=== PATIENT | female | born 1990 | race Caucasian/White ===

== ENCOUNTER 2016-12-28 13:49 | Inpatient (IN) | payer BC, OTHER ==
[~2016-12-28] VITALS: Ht 162.6 cm; Wt 118.2 kg
[2016-12-28] MEDS ORDERED: PREN-3 PO (14:18)
[2016-12-28 14:41] LABS: HEMATOCRIT 37.8 % (34.6-47.8); HEMOGLOBIN 12.7 g/dL (11.7-16.4); WHITE BLOOD COUNT 12.1 x10^3/uL (3.4-10)
[2016-12-28 15:02] LABS: ASPARTATE AMINO TRANSFERASE 13 U/L (15-37); BLOOD UREA NITROGEN 9 mg/dL (7-18)
[2016-12-28] MEDS ORDERED: LABETALOL 100 MG TABLET ONE (21:06)
[2016-12-28] MEDS ORDERED: LABETALOL 100 MG TABLET PO ONE (21:30)
[2016-12-28] MEDS ORDERED: LABETALOL 100 MG TABLET PO SCH (21:30)
[2016-12-29] MEDS: LACTATED RINGERS 1,000 ML IV SCH ×4 (04:30→19:43)
[2016-12-29] MEDS ORDERED: BETAMETHASONE 6 MG/ML, 5ML IM ONE ×2 (09:51→10:00)
[2016-12-29] MEDS ORDERED: OXYTOCIN 30U/ 0.9% NaCL 500ML 500 ML IV SCH (15:53)
[2016-12-29] MEDS ORDERED: LACTATED RINGERS 1,000 ML IVBOLUS ONE (16:00)
[2016-12-29] MEDS ORDERED: SODIUM CITRATE/CITRIC ACID 30 ML UDC PO ONE (16:00)
[2016-12-29] MEDS ORDERED: METOCLOPRAMIDE 5 MG/ML, 2ML IV ONE (16:00)
[2016-12-29] MEDS ORDERED: ONDANSETRON 2MG/ML, 2ML IVPush ONE (16:00)
[2016-12-29] MEDS ORDERED: NEWBORN KIT ONE (16:04)
[2016-12-29] MEDS ORDERED: SODIUM CITRATE/CITRIC ACID 30 ML UDC ONE (16:23)
[2016-12-29] MEDS ORDERED: METOCLOPRAMIDE 5 MG/ML, 2ML ONE (16:23)
[2016-12-29] MEDS ORDERED: INFLUENZA VACCINE IM-VACC ONE (16:30)
[2016-12-29] MEDS ORDERED: CEFAZOLIN 1,000 MG ONE ×4 (16:38→16:39)
[2016-12-29] MEDS ORDERED: MAGNESIUM SULF. PMX 20GM/500ML 500 ML IV SCH (16:40)
[2016-12-29] MEDS ORDERED: OXYTOCIN 10 UNITS/ML, 1ML ONE ×3 (16:41)
[2016-12-29] MEDS ORDERED: MAGNESIUM SULF. PMX 20GM/500ML 500 ML IV ONE (16:46)
[2016-12-29] MEDS ORDERED: OXYcodone 5 MG/5 ML ORAL.SOL UDC PO ONE (18:47)
[2016-12-29] MEDS ORDERED: KETOROLAC 30 MG/1 ML ONE (18:51)
[2016-12-29] MEDS ORDERED: OXYTOCIN 30U/ 0.9% NaCL 500ML 500 ML ONE (19:31)
[2016-12-29] MEDS: OXYTOCIN 30U/ 0.9% NaCL 500ML 500 ML IV SCH (19:38)
[2016-12-29] MEDS ORDERED: METOCLOPRAMIDE 5 MG/ML, 2ML IV PRN (20:00)
[2016-12-29] MEDS ORDERED: MISOPROSTOL 200 MCG TABLET PR PRN (20:00)
[2016-12-29] MEDS ORDERED: ONDANSETRON 2MG/ML, 2ML IV PRN (20:00)
[2016-12-29] MEDS ORDERED: GLYCERIN ADULT SUPP PR PRN (20:00)
[2016-12-29] MEDS ORDERED: ACETAMINOPHEN 325 MG TABLET PO PRN (20:00)
[2016-12-29] MEDS ORDERED: BISACODYL 10 MG SUPP PR PRN (20:00)
[2016-12-29] MEDS ORDERED: SIMETHICONE 80 MG CHEW TAB PO PRN (20:00)
[2016-12-29] MEDS ORDERED: FENTANYL PF 100 MCG/2ML ONE ×2 (20:07→21:42)
[2016-12-29] MEDS: FENTANYL PF 100 MCG/2ML IVPush PRN ×4 (20:20→22:01)
[2016-12-29] MEDS ORDERED: OXYcodone 5 MG/5 ML ORAL.SOL UDC ONE (20:47)
[2016-12-29 21:50] VITALS: BP 134/79
[2016-12-30] VITALS: BP 130/74
[2016-12-30] MEDS: KETOROLAC 30 MG/1 ML IV SCH ×4 (01:09→19:57)
[2016-12-30] MEDS: OXYcodone/APAP 5/325MG TABLET PO PRN ×3 (03:15→18:23)
[2016-12-30] MEDS: LACTATED RINGERS 1,000 ML IV SCH ×3 (03:38→15:38)
[2016-12-30 04:33] VITALS: BP 126/74
[2016-12-30 04:57] LABS: HEMATOCRIT 34.5 % (34.6-47.8); HEMOGLOBIN 11.7 g/dL (11.7-16.4); WHITE BLOOD COUNT 16.1 x10^3/uL (3.4-10)
[2016-12-30] MEDS: OXYTOCIN 30U/ 0.9% NaCL 500ML 500 ML IV SCH ×2 (05:38→15:38)
[2016-12-30 07:10] VITALS: BP 116/74
[2016-12-30] MEDS: DOCUSATE 100 MG CAPSULE PO PRN ×2 (08:17→19:57)
[2016-12-30] MEDS: PRENATAL VIT/IRON/FA 1 EACH TABLET PO SCH (08:17)
[2016-12-30 12:36] VITALS: BP 128/87
[2016-12-30] MEDS ORDERED: RHOGAM FROM BLOOD BANK 1 NOTE EA IM/IV ONE (15:00)
[2016-12-30 15:55] VITALS: BP 118/76
[2016-12-30 19:30] VITALS: BP 134/83
[2016-12-31] MEDS: LACTATED RINGERS 1,000 ML IV SCH ×3 (01:38→21:38)
[2016-12-31] MEDS: OXYTOCIN 30U/ 0.9% NaCL 500ML 500 ML IV SCH ×3 (01:38→21:38)
[2016-12-31] MEDS: KETOROLAC 30 MG/1 ML IV SCH ×4 (02:22→22:00)
[2016-12-31] MEDS: OXYcodone/APAP 5/325MG TABLET PO PRN ×3 (02:23→21:44)
[2016-12-31 07:56] VITALS: BP 117/78
[2016-12-31] MEDS: PRENATAL VIT/IRON/FA 1 EACH TABLET PO SCH (07:58)
[2016-12-31] MEDS: DOCUSATE 100 MG CAPSULE PO PRN ×2 (07:59→21:44)
[2016-12-31] MEDS ORDERED: DIPHENHYDRAMINE 50 MG/ML, 1ML IVPush ONE (14:00)
[2016-12-31] MEDS ORDERED: MAGNESIUM SULF. PMX 20GM/500ML 500 ML IV SCH (16:40)
[2016-12-31 20:00] VITALS: BP 138/80
[2016-12-31] MEDS: IBUPROFEN 800 MG TABLET PO PRN (21:44)
[2017-01-01] MEDS: OXYTOCIN 30U/ 0.9% NaCL 500ML 500 ML IV SCH ×2 (07:38→17:38)
[2017-01-01] MEDS: LACTATED RINGERS 1,000 ML IV SCH ×2 (07:38→17:38)
[2017-01-01 09:00] VITALS: BP 132/88
[2017-01-01] MEDS: PRENATAL VIT/IRON/FA 1 EACH TABLET PO SCH (09:02)
[2017-01-01] MEDS: DOCUSATE 100 MG CAPSULE PO PRN ×2 (09:02→19:40)
[2017-01-01] MEDS: IBUPROFEN 800 MG TABLET PO PRN ×2 (09:49→19:40)
[2017-01-01] MEDS: OXYcodone/APAP 5/325MG TABLET PO PRN ×3 (09:49→19:40)
[2017-01-01] MEDS ORDERED: ONDANSETRON ODT 4 MG PO PRN (19:30)
[2017-01-01 19:49] VITALS: BP 144/97
[2017-01-01] MEDS ORDERED: BISACODYL 10 MG SUPP PR PRN (21:00)
[2017-01-01] MEDS ORDERED: GLYCERIN ADULT SUPP PR PRN (21:00)
[2017-01-01] MEDS ORDERED: MISOPROSTOL 200 MCG TABLET PR PRN (21:00)
[2017-01-01] MEDS ORDERED: ACETAMINOPHEN 325 MG TABLET PO PRN (21:00)
[2017-01-01] MEDS ORDERED: SIMETHICONE 80 MG CHEW TAB PO PRN (21:00)
[2017-01-01 22:50] VITALS: BP 134/81
[2017-01-01 23:19] LABS: ASPARTATE AMINO TRANSFERASE 15 U/L (15-37); BLOOD UREA NITROGEN 13 mg/dL (7-18)
[2017-01-01 23:20] LABS: HEMATOCRIT 35.3 % (34.6-47.8); HEMOGLOBIN 11.8 g/dL (11.7-16.4); WHITE BLOOD COUNT 9.4 x10^3/uL (3.4-10)
[2017-01-02] MEDS ORDERED: BUTALB/APAP/CAFFEINE 50MG/325MG/40MG PO PRN (07:30)
[2017-01-02] MEDS ORDERED: OXYC-302 PO (07:38)
[2017-01-02] MEDS ORDERED: IBUP-1222 PO (07:38)
[2017-01-02] MEDS ORDERED: fioricet (07:45)
[2017-01-02] MEDS ORDERED: BUTA-177 PO (07:47)
[2017-01-02 09:25] VITALS: BP 139/87
[2017-01-02] MEDS: PRENATAL VIT/IRON/FA 1 EACH TABLET PO SCH (09:35)
[2017-01-02] MEDS: DOCUSATE 100 MG CAPSULE PO PRN (09:35)
[2017-01-02] MEDS: IBUPROFEN 800 MG TABLET PO PRN (09:35)
== END 2017-01-02 16:05 | disposition home or self-care (01) | DRG 765 ==
LOC: LDIP 13:49 → OBSVTOIN 12-29 15:33 → 2NW 12-29 22:30
PROVIDERS: ADMIT Student in an Organized Health Care Education/Training Program; ATTEND Student in an Organized Health Care Education/Training Program
PROC: 10D00Z1 Extraction of Products of Conception, Low, Open Approach (ICD-10-PCS; principal; 2016-12-29)
DX: O34.211 Maternal care for low transverse scar from previous cesarean delivery (principal); O45.93 Premature separation of placenta, unspecified, third trimester; E66.01 Morbid (severe) obesity due to excess calories; E10.65 Type 1 diabetes mellitus with hyperglycemia; O36.4XX0 Maternal care for intrauterine death, not applicable or unspecified; Z37.3 Twins, one liveborn and one stillborn; O99.284 Endocrine, nutritional and metabolic diseases complicating childbirth; O26.893 Other specified pregnancy related conditions, third trimester; O14.94 Unspecified pre-eclampsia, complicating childbirth; O31 Complications specific to multiple gestation; O30.043 Twin pregnancy, dichorionic/diamniotic, third trimester; O76 Abnormality in fetal heart rate and rhythm complicating labor and delivery; E03.9 Hypothyroidism, unspecified; O99.214 Obesity complicating childbirth; Z3A.32 32 weeks gestation of pregnancy; Z79.4 Long term (current) use of insulin; Z86.001 Personal history of in-situ neoplasm of cervix uteri; Z87.891 Personal history of nicotine dependence; Z96.41 Presence of insulin pump (external) (internal)
CPT/HCPCS: 36415; 80053; 81001; 81050; 82248; 82570; 82803; 84156; 84550; 85025; 85461; 86850; 86870; 86900; 86922; 86923; 88305; G0378; J0690; J0702; J1885; J2790; J3010; Q0162; J1200; J2590; J2765; J7120

== ENCOUNTER 2020-01-17 09:08 | Observation (INO) | payer SELFPAY ==
[~2020-01-17] VITALS: Ht 162.6 cm; Wt 119.5 kg
[~2020-01-17 09:08] MED LIST: BUTA-177 PO; IBUP-1222 PO; OXYC-302 PO; PREN-3 PO; fioricet
[2020-01-17 09:38] VITALS: BP 170/79
[2020-01-17 09:52] LABS: BASOPHILS % (AUTO) 1 % (0-1); EOSINOPHILS % (AUTO) 1 % (1-7); LYMPHOCYTES % (AUTO) 19 % (22-44); MEAN CORPUSCULAR HEMOGLOBIN 29.6 pg (27.0-34.8); MEAN CORPUSCULAR HGB CONC 33.9 g/dL (32.4-35.8); MEAN PLATELET VOLUME 8.1 fL (7.4-10.4); MONOCYTES % (AUTO) 5 % (2-9); NEUTROPHILS % (AUTO) 75 % (42-75); PLATELET COUNT 238 x10^3/uL (130-400); RED BLOOD COUNT 4.51 x10^6/uL (3.82-5.3); RED CELL DISTRIBUTION WIDTH 13.4 % (9.6-15.2)
[2020-01-17 09:57] LABS: MD NO
[2020-01-17 10:06] LABS: ALANINE AMINOTRANSFERASE 13 U/L (12-78); ALBUMIN 2.6 g/dL (3.4-5.0); ANION GAP 9 mmol/L (5-15); CALCIUM 8.4 mg/dL (8.5-10.1); CHLORIDE 111 mmol/L (98-107); CREATININE 0.64 mg/dL (0.55-1.02)
[2020-01-17 10:08] LABS: ALKALINE PHOSPHATASE 119 U/L (45-117); BILIRUBIN,TOTAL 0.3 mg/dL (0.2-1.0); TOTAL PROTEIN 6.3 g/dL (6.4-8.2)
[2020-01-17 10:09] LABS: BILIRUBIN, DIRECT < 0.1 mg/dL (0.1-0.2)
[2020-01-17 10:29] LABS: MICROSCOPIC NOT IND
[2020-01-17 10:48] LABS: CREATININE,URINE RANDOM 69.5 mg/dL
[2020-01-17] MEDS ORDERED: LEVOTHYROXINE 100 MCG TABLET PO SCH (21:00)
[2020-01-18] MEDS ORDERED: PRENATAL VIT/IRON/FA 1 EACH TABLET PO SCH (09:00)
[2020-01-18] MEDS ORDERED: ASPIRIN 81 MG TABLET CHEW PO SCH (09:00)
[2020-01-18] MEDS ORDERED: DOCUSATE 100 MG CAPSULE ONE (10:03)
[2020-01-18] MEDS ORDERED: PRENATAL VIT/IRON/FA 1 EACH TABLET ONE (10:03)
[2020-01-18] MEDS ORDERED: ASPIRIN 81 MG TABLET EC ONE (10:04)
== END 2020-01-18 13:47 | disposition home or self-care (01) ==
LOC: LDOP 09:08 → ORIP 12:36 → LDIP 13:28
PROVIDERS: ADMIT Obstetrics & Gynecology; ATTEND Obstetrics & Gynecology
DX: O24.013 Pre-existing type 1 diabetes mellitus, in pregnancy, third trimester (principal); O99.283 Endocrine, nutritional and metabolic diseases complicating pregnancy, third trimester; E03.9 Hypothyroidism, unspecified; E55.9 Vitamin D deficiency, unspecified; O26.893 Other specified pregnancy related conditions, third trimester; R03.0 Elevated blood-pressure reading, without diagnosis of hypertension; Z87.59 Personal history of other complications of pregnancy, childbirth and the puerperium; Z79.4 Long term (current) use of insulin; Z96.41 Presence of insulin pump (external) (internal); Z67.91 Unspecified blood type, Rh negative; Z79.899 Other long term (current) drug therapy; Z3A.34 34 weeks gestation of pregnancy
CPT/HCPCS: 36415; 59025; 80053; 81003; 82248; 82570; 83036; 83615; 84156; 84550; 85025; 87086; G0378

== ENCOUNTER → 2020-01-30 | Outpatient (CLI) | payer BC | END | disposition home or self-care (01) | LOC: STAR 13:08 | PROVIDERS: ATTEND Obstetrics & Gynecology | DX: Z20.828 Contact with and (suspected) exposure to other viral communicable diseases (principal) | CPT/HCPCS: 87635 ==

== ENCOUNTER 2020-02-04 05:23 | Inpatient (IN) | payer BC ==
[~2020-02-04] VITALS: Ht 162.6 cm; Wt 124.0 kg
[2020-02-04] MEDS ORDERED: METOCLOPRAMIDE 5 MG/ML, 2ML IV ONE (05:30)
[2020-02-04] MEDS ORDERED: SODIUM CITRATE/CITRIC ACID 30 ML UDC PO ONE (05:30)
[2020-02-04] MEDS ORDERED: LACTATED RINGERS 1,000 ML IVBOLUS ONE (05:30)
[2020-02-04] MEDS ORDERED: LACTATED RINGERS 1,000 ML IV SCH (05:30)
[2020-02-04 05:42] VITALS: BP 113/77
[2020-02-04] MEDS ORDERED: LEVO100T PO (05:54)
[2020-02-04] MEDS ORDERED: ASPI-515 PO (05:54)
[2020-02-04] MEDS ORDERED: VIT1TABL67 PO (05:55)
[2020-02-04] MEDS ORDERED: OXYTOCIN 30U/ 0.9% NaCL 500ML 500 ML ONE (06:19)
[2020-02-04] MEDS ORDERED: NEWBORN KIT ONE (06:19)
[2020-02-04] MEDS ORDERED: SODIUM CITRATE/CITRIC ACID 15 ML UDC ONE (06:19)
[2020-02-04] MEDS ORDERED: METOCLOPRAMIDE 5 MG/ML, 2ML ONE (06:19)
[2020-02-04 06:38] LABS: BASOPHILS % (AUTO) 0 % (0-1); EOSINOPHILS % (AUTO) 1 % (1-7); LYMPHOCYTES % (AUTO) 24 % (22-44); MEAN CORPUSCULAR HEMOGLOBIN 29.7 pg (27.0-34.8); MEAN CORPUSCULAR HGB CONC 34.1 g/dL (32.4-35.8); MEAN PLATELET VOLUME 8.5 fL (7.4-10.4); MONOCYTES % (AUTO) 7 % (2-9); NEUTROPHILS % (AUTO) 68 % (42-75); PLATELET COUNT 226 x10^3/uL (130-400); RED BLOOD COUNT 4.03 x10^6/uL (3.82-5.3); RED CELL DISTRIBUTION WIDTH 13.3 % (9.6-15.2)
[2020-02-04 06:41] LABS: MD NO
[2020-02-04] MEDS ORDERED: OXYTOCIN 10 UNITS/ML, 1ML ONE (07:09)
[2020-02-04] MEDS ORDERED: ONDANSETRON 2MG/ML, 2ML ONE ×2 (07:09→09:12)
[2020-02-04] MEDS ORDERED: CEFAZOLIN 1,000 MG ONE (07:09)
[2020-02-04] MEDS ORDERED: HYDROmorphone 2 MG/ML, 1ML ONE (07:10)
[2020-02-04] MEDS ORDERED: FENTANYL PF 100 MCG/2ML ONE (07:10)
[2020-02-04] MEDS ORDERED: KETOROLAC 30 MG/1 ML ONE (07:14)
[2020-02-04] MEDS ORDERED: ONDANSETRON 2MG/ML, 2ML IV PRN (08:00)
[2020-02-04] MEDS ORDERED: CALCIUM CARBONATE 500 MG TAB.CHEW PO PRN (08:00)
[2020-02-04] MEDS ORDERED: DIPH,PERTUSS(ACELL),TET VAC/PF NC IM-VACC PRN (08:00)
[2020-02-04] MEDS ORDERED: OXYcodone IR 5MG TABLET PO PRN (08:00)
[2020-02-04] MEDS ORDERED: METOCLOPRAMIDE 5 MG/ML, 2ML IV PRN (08:00)
[2020-02-04] MEDS ORDERED: MISOPROSTOL 200 MCG TABLET SL PRN (08:00)
[2020-02-04] MEDS ORDERED: ACETAMINOPHEN 325 MG TABLET PO PRN (08:00)
[2020-02-04] MEDS: LACTATED RINGERS 1,000 ML IV SCH ×4 (08:00→19:00)
[2020-02-04] MEDS ORDERED: METHYLERGONOVINE 0.2 MG/ML IM PRN (08:00)
[2020-02-04] MEDS ORDERED: MORPHINE SULFATE 4 MG/ML, 1ML IVPush PRN (08:00)
[2020-02-04] MEDS: PRENATAL VIT/IRON/FA 1 EACH TABLET PO SCH (09:00)
[2020-02-04] MEDS: DOCUSATE 100 MG CAPSULE PO SCH ×2 (09:00→20:58)
[2020-02-04] MEDS: OXYTOCIN 30U/ 0.9% NaCL 500ML 500 ML IV SCH ×2 (09:26→18:00)
[2020-02-04] MEDS: INSULIN LISPRO 100 UNITS/ML, PEN SQ-INSULIN SCH ×3 (09:44→21:00)
[2020-02-04 11:30] VITALS: BP 115/75
[2020-02-04] MEDS: OXYcodone IR 5MG TABLET PO PRN ×2 (12:44→17:07)
[2020-02-04] MEDS: KETOROLAC 30 MG/1 ML IV SCH ×3 (14:00→20:57)
[2020-02-04 16:00] VITALS: BP 134/84
[2020-02-04 19:00] VITALS: BP 122/79
[2020-02-04] MEDS: SIMETHICONE 80 MG CHEW TAB PO PRN (20:58)
[2020-02-05 01:00] VITALS: BP 122/86
[2020-02-05] MEDS: SIMETHICONE 80 MG CHEW TAB PO PRN ×4 (02:54→22:11)
[2020-02-05] MEDS: KETOROLAC 30 MG/1 ML IV SCH ×5 (02:54→20:59)
[2020-02-05] MEDS: OXYTOCIN 30U/ 0.9% NaCL 500ML 500 ML IV SCH ×2 (04:00→14:00)
[2020-02-05] MEDS: LACTATED RINGERS 1,000 ML IV SCH ×5 (04:34→16:00)
[2020-02-05 05:00] VITALS: BP 127/84
[2020-02-05] MEDS: OXYcodone IR 5MG TABLET PO PRN ×4 (05:03→22:12)
[2020-02-05] MEDS: INSULIN LISPRO 100 UNITS/ML, PEN SQ-INSULIN SCH ×4 (05:04→21:00)
[2020-02-05 06:14] LABS: BASOPHILS % (AUTO) 0 % (0-1); EOSINOPHILS % (AUTO) 1 % (1-7); LYMPHOCYTES % (AUTO) 16 % (22-44); MEAN CORPUSCULAR HEMOGLOBIN 29.8 pg (27.0-34.8); MEAN PLATELET VOLUME 8.5 fL (7.4-10.4); MONOCYTES % (AUTO) 5 % (2-9); NEUTROPHILS % (AUTO) 78 % (42-75); PLATELET COUNT 198 x10^3/uL (130-400); RED BLOOD COUNT 3.53 x10^6/uL (3.82-5.3); RED CELL DISTRIBUTION WIDTH 13.4 % (9.6-15.2)
[2020-02-05 06:18] LABS: MD NO
[2020-02-05 08:45] VITALS: BP 126/89
[2020-02-05] MEDS: DOCUSATE 100 MG CAPSULE PO SCH ×2 (08:58→22:11)
[2020-02-05] MEDS: PRENATAL VIT/IRON/FA 1 EACH TABLET PO SCH (08:59)
[2020-02-05] MEDS: IBUPROFEN 200 MG TABLET PO PRN ×2 (15:19→22:11)
[2020-02-05] MEDS ORDERED: RHOGAM FROM BLOOD BANK 1 NOTE EA IM/IV ONE (17:30)
[2020-02-05 19:40] VITALS: BP 138/84
[2020-02-06] MEDS: LACTATED RINGERS 1,000 ML IV SCH ×6 (01:00→21:00)
[2020-02-06] MEDS: KETOROLAC 30 MG/1 ML IV SCH (03:00)
[2020-02-06] MEDS: SIMETHICONE 80 MG CHEW TAB PO PRN ×3 (05:40→18:05)
[2020-02-06] MEDS: OXYcodone IR 5MG TABLET PO PRN ×3 (05:40→18:10)
[2020-02-06] MEDS: IBUPROFEN 200 MG TABLET PO PRN ×3 (05:42→18:05)
[2020-02-06 07:00] VITALS: BP 125/74
[2020-02-06] MEDS: INSULIN LISPRO 100 UNITS/ML, PEN SQ-INSULIN SCH ×4 (07:00→22:18)
[2020-02-06] MEDS ORDERED: IBUPROFEN 800 MG TABLET PO PRN (08:00)
[2020-02-06] MEDS: OXYTOCIN 30U/ 0.9% NaCL 500ML 500 ML IV SCH ×3 (10:00→20:00)
[2020-02-06] MEDS: PRENATAL VIT/IRON/FA 1 EACH TABLET PO SCH (10:12)
[2020-02-06] MEDS: DOCUSATE 100 MG CAPSULE PO SCH ×2 (10:12→22:35)
[2020-02-06 19:50] VITALS: BP 135/83
[2020-02-07] MEDS: IBUPROFEN 200 MG TABLET PO PRN ×4 (02:46→21:56)
[2020-02-07] MEDS: SIMETHICONE 80 MG CHEW TAB PO PRN ×3 (02:46→21:57)
[2020-02-07] MEDS: OXYcodone IR 5MG TABLET PO PRN ×4 (02:47→21:57)
[2020-02-07] MEDS: OXYTOCIN 30U/ 0.9% NaCL 500ML 500 ML IV SCH ×2 (06:00→16:00)
[2020-02-07] MEDS: INSULIN LISPRO 100 UNITS/ML, PEN SQ-INSULIN SCH ×4 (07:00→21:45)
[2020-02-07] MEDS: LACTATED RINGERS 1,000 ML IV SCH ×5 (07:00→17:00)
[2020-02-07 07:35] VITALS: BP 128/85
[2020-02-07] MEDS: DOCUSATE 100 MG CAPSULE PO SCH ×2 (08:32→21:56)
[2020-02-07] MEDS: PRENATAL VIT/IRON/FA 1 EACH TABLET PO SCH (08:32)
[2020-02-07 21:50] VITALS: BP 132/84
[2020-02-08] MEDS: OXYTOCIN 30U/ 0.9% NaCL 500ML 500 ML IV SCH ×2 (02:00→12:00)
[2020-02-08] MEDS: LACTATED RINGERS 1,000 ML IV SCH ×3 (03:00→08:00)
[2020-02-08] MEDS: IBUPROFEN 200 MG TABLET PO PRN (06:19)
[2020-02-08] MEDS: OXYcodone IR 5MG TABLET PO PRN (06:19)
[2020-02-08] MEDS: INSULIN LISPRO 100 UNITS/ML, PEN SQ-INSULIN SCH ×2 (06:30→11:00)
[2020-02-08 08:02] VITALS: BP 124/83
[2020-02-08] MEDS ORDERED: DOCU-131 PO (09:19)
[2020-02-08] MEDS ORDERED: IBUP-1222 PO (09:19)
[2020-02-08] MEDS ORDERED: OXYC-302 PO (09:19)
[2020-02-08] MEDS: PRENATAL VIT/IRON/FA 1 EACH TABLET PO SCH (09:21)
[2020-02-08] MEDS: DOCUSATE 100 MG CAPSULE PO SCH (09:21)
== END 2020-02-08 13:10 | disposition home or self-care (01) | DRG 788 ==
LOC: LDIP 05:23 → 2NW 11:15
PROVIDERS: ADMIT Obstetrics & Gynecology; ATTEND Obstetrics & Gynecology
PROC: 10D00Z1 Extraction of Products of Conception, Low, Open Approach (ICD-10-PCS; principal; 2020-02-04)
PROC: 3E0234Z Introduction of Serum, Toxoid and Vaccine into Muscle, Percutaneous Approach (ICD-10-PCS; 2020-02-05)
DX: O14.04 Mild to moderate pre-eclampsia, complicating childbirth (principal); Z20.828 Contact with and (suspected) exposure to other viral communicable diseases; O24.02 Pre-existing type 1 diabetes mellitus, in childbirth; E03.9 Hypothyroidism, unspecified; E10.9 Type 1 diabetes mellitus without complications; E55.9 Vitamin D deficiency, unspecified; O34.211 Maternal care for low transverse scar from previous cesarean delivery; O40.3XX0 Polyhydramnios, third trimester, not applicable or unspecified; O13.4 Gestational [pregnancy-induced] hypertension without significant proteinuria, complicating childbirth; Z96.41 Presence of insulin pump (external) (internal); E66.01 Morbid (severe) obesity due to excess calories; O36.63X0 Maternal care for excessive fetal growth, third trimester, not applicable or unspecified; O99.214 Obesity complicating childbirth; O99.284 Endocrine, nutritional and metabolic diseases complicating childbirth; Z37.0 Single live birth; Z3A.37 37 weeks gestation of pregnancy; Z79.4 Long term (current) use of insulin; Z79.82 Long term (current) use of aspirin; Z82.3 Family history of stroke; Z86.001 Personal history of in-situ neoplasm of cervix uteri; Z23 Encounter for immunization
CPT/HCPCS: 82962; 85025; 85461; 86592; 86850; 86870; 86900; 86922; 86923; 87635; G0378; J0690; J1170; J1885; J2405; J2790; J3010; J1815; J2590; J2765; J7120